=== PATIENT | male | born 1985 | race Caucasian/White ===

== ENCOUNTER 2021-03-26 10:20 | Emergency (ER) | payer SELFPAY ==
[2021-03-26 10:35] VITALS: BP 127/84; PULSE 71; RESP 19; TEMP 37.1; O2SAT 99; BMI 28.7
--- NOTE | 2021-03-26 10:57 | XR_ITS ---
WS: [id number] Exam: XR cervical spine 3V* [id number] Date/Time of Exam: 03/26/2021 10:57 AM Reason For Exam: fall No acute fracture or dislocation. There is straightening of the C-spine. Paraspinal soft tissues appe ar normal. The odontoid is intact. Disc spaces are preserved. Posterior elements are intact. XR/XR cervical spine 3V* [id number] IMPRESSION: 1. Straightening of the C-spine. No fracture or malalignment.
--- NOTE | 2021-03-26 11:00 | W.ED.FALL ---
HPI - Fall General: Chief Complaint: Fall Stated Complaint: FELL 3' FROM LADDER 1WK AGO:PROGRESSING NECK PAIN Time Seen by Provider: 03/26/21 10:22 History of Present Illness: HPI Narrative: 35-year-old male fell from a 3 foot ladder 1 week ago he hurt his neck. Since that time he has been ambulatory moving his head and neck. Is been increasingly uncomfortable he denies any radicular pain into his arms no previous injury to the neck or arms. No other injury at the time of the fall did not strike his head did not lose consciousness. Today came in because he was having some increasing left shoulder pain. MD complaint: fall Onset (ago): week(s) Fall from: from height (distance) (3 ft) Fall witnessed: no Place fall occurred: home Loss of consciousness: None Prolonged down time: no Symptoms prior to fall: none Context: tripped/slipped Location of injury: neck Associated symptoms-after fall: Denies abdominal pain, chest pain, confusion, difficulty walking, headache(s), hematuria, lightheadedness, neck pain, numbness, short of breath, vertigo or weakness Review of Systems Const: Denies: fever(s), chills, body aches, change in appetite, fatigue or malaise ENMT: Denies: throat pain, ear or mastoid pain, nasal discharge or nasal congestion Card: Denies: chest pain or lightheadedness Resp: Denies: dyspnea, productive cough or non-productive cough GI: Denies: abdominal pain : Denies: hematuria Musc: Denies: neck pain Skin/Breast: Denies: rash or pruritus Neuro: Denies: headache(s), difficulty walking, vertigo or confusion Physical Exam Const: COMMON NORMALS: no acute distress GENERAL APPEARANCE: cooperative and comfortable ORIENTATION/CONSCIOUSNESS: Yes awake, Yes oriented to person, Yes oriented to place and Yes oriented to time HENMT: COMMON NORMALS: normocephalic, atraumatic and hearing grossly normal bilaterally HEAD & SCALP: normocephalic and atraumatic Neck/C-Spine: COMMON NORMALS: no JVD Resp: COMMON NORMALS: normal respiratory effort, No retractions, No use of accessory muscles and clear to auscultation bilaterally AUSCULTATION: clear to auscultation bilaterally Cardio: COMMON NORMALS: no JVD, regular rate, regular rhythm and No murmurs present (Cardio) RATE: regular rate RHYTHM: regular rhythm GI: COMMON NORMALS: Soft to palpation and No hepatosplenomegaly present AUSCULTATION: Yes normoactive bowel sounds PALPATION: Yes Soft to palpation, No Tenderness to palpation present (GI), No Guarding due to palpation present (GI) and Yes No hepatosplenomegaly present Extremity: COMMON NORMALS: normal to inspection, capillary refill normal, no clubbing, cyanosis or edema, no calf tenderness and no pedal edema Neuro: SENSORIUM/ORIENTATION: Yes oriented to person, Yes oriented to place and Yes oriented to time Skin: COMMON NORMALS: no rashes or lesions noted GENERAL SKIN EXAM: no rashes or lesions noted Course Vital Signs: Vital signs: Vital Signs Temperature 98.7 F 03/26/21 10:35 Pulse Rate 74 03/26/21 11:30 Respiratory Rate 17 03/26/21 11:30 Blood Pressure 128/74 03/26/21 11:30 Pulse Oximetry 98 03/26/21 11:30 MDM - Fall MDM Narrative: Medical decision making narrative: Reviewed labs and imaging discussed with patient discharged home with anti-inflammatories rest follow-up as needed Discharge Plan Discharge Patient Disposition: Home Clinical Impression: Neck pain Condition: Stable Prescriptions: New diclofenac sodium 75 mg tablet,delayed release (DR/EC) 75 mg PO Q12H PRN (Reason: pain) Qty: 20 RF: 0 Discharge Orders: Discharge ED (Routine); Ordered 03/26/21 Ordered By: Brandon Guzman Discharge Diet: Usual diet Discharge Activity: Increase activity as tolerated Patient Instructions: Opioid Safety Coding Level of Care Code ED Roof Bolter Operator for Laureng Fwd Exam Comprehensive
[2021-03-26 11:30] VITALS: BP 128/74; PULSE 74; RESP 17; O2SAT 98
--- NOTE | 2021-03-27 12:57 | DCPLANNER ---
cath lab manager had message to speak with patient about getting established with a primary care physician. cath lab manager called phone number [phone], unable to speak with patient at this time, and unable to leave a voicemail for patient.
== END 2021-03-26 11:21 | disposition home or self-care (01) ==
PROVIDERS: Emergency Provider Family Medicine
DX: M54.2 Cervicalgia (principal)
CPT/HCPCS: 72040; 99281

== ENCOUNTER 2021-09-20 14:19 | Emergency (ER) | payer MEDICAID, SELFPAY ==
[2021-09-20 14:38] VITALS: BP 134/87; PULSE 73; RESP 18; TEMP 36.9; O2SAT 99; BMI 30.1
--- NOTE | 2021-09-20 14:43 | W.ED.SKABFB ---
HPI - Skin/Abscess/Foreign Bdy General: Chief complaint: Skin/Abscess/Foreign Body Stated complaint: rash Time Seen by Provider: 09/20/21 14:43 Source: patient Mode of arrival: ambulatory Limitations: no limitations History of Present Illness: Patient is a 35-year-old male who presents to ED today with a complaint of skin lesions. Patient tells me last week he was tearing down an old back porch/deck due to the wood being in poor shape and states following this he noticed a few bumps to his lower legs that were itchy. Patient states he did not think much of it at the time. He states yesterday he was then cutting the old wood and noticed today several more lesions to his lower legs and arms. He states lesions are only on areas that were exposed at the time. He states he did not notice any obvious insects on the old would. There was no growth/wilder/plants that he can think of that he would have been exposed to. He does state he was doing some dirt work underneath the porch. He states the lesions itch and some burn. He has no other complaints. No systemic symptoms. MD complaint: rash and lesion Onset (ago): hour(s) Tetanus up to date: yes Location: LUE, RUE, LLE and RLE Severity: mild Quality: burning and pruritic Relieving factors: none Exacerbating factors: none Associated symptoms: Reports no associated symptoms; Deny chills or fever(s) Review of Systems Const: Denies: fever(s), chills, body aches, fatigue or malaise Eyes: Denies: change in vision ENMT: Denies: throat pain, odynophagia, nasal discharge or nasal congestion Card: Denies: chest pain Resp: Denies: dyspnea GI: Denies: abdominal pain Musc: Denies: neck pain, back pain, extremity pain or joint pain Skin/Breast: Reports: new lesions Neuro: Denies: headache(s), numbness in extremities, weakness in extremities, sensory changes or difficulty walking Physical Exam Const: COMMON NORMALS: no acute distress, average body habitus, patient oriented x3, no limitations, healthy appearing, alert and well nourished HENMT: COMMON NORMALS: normocephalic and atraumatic HEAD & SCALP: normocephalic and atraumatic FACE & SINUS: normal facial exam Neck/C-Spine: COMMON NORMALS: no lymphadenopathy Resp: COMMON NORMALS: normal respiratory effort Extremity: GENERAL: Yes normal exam except as noted Neuro: COMMON NORMALS: patient oriented x3, moves all extremities, no focal motor deficits, no sensory deficits noted and gait normal SENSORIUM/ORIENTATION: Yes alert Skin: NARRATIVE SKIN EXAM: pt has multiple (maybe a total of 8-9 to bilateral LEs, 5-6 to bilateral UEs, and one to anterior neck) small papular/wheeled lesions; some have a small amount of surrounding erythema and there are a few with vesicle formation; no linear streaking/lesions not consistent with plant dermatitis; lesions appear to be insect bites Course Vital Signs: Vital signs: Vital Signs Temperature 98.4 F 09/20/21 14:38 Pulse Rate 73 09/20/21 15:14 Respiratory Rate 16 09/20/21 15:14 Blood Pressure 134/87 09/20/21 15:14 Pulse Oximetry 99 09/20/21 15:14 MDM - Skin/Abscess/Foreign Bdy Medicial Decision Making Patient here with multiple lesions after exposure to old wood that he was tearing/cutting. Lesions clinically appear as insect bites. I would recommend at this time he keep wounds clean and avoid picking. He may apply topical hydrocortisone cream or benadryl cream to help with the itching and burning. He may also try oatmeal baths, calamine lotion, OTC insect bite relief, etc to help. Return to ED precautions given. Otherwise he can follow-up with PCP in 1 to 2 weeks if lesions do not seem to be improving. Discharge Plan Discharge Patient Disposition: Home Clinical Impression: Insect bites Condition: Stable Prescriptions: No Action diclofenac sodium 75 mg tablet,delayed release (DR/EC) 75 mg PO Q12H PRN (Reason: pain) Qty: 20 0RF Discharge Orders: Discharge ED (Routine); Ordered 09/20/21 Ordered By: Rosa Correa Activity Restrictions/Additional Instructions: As we discussed you may try topical therapies such as hydrocortisone cream, topical benadryl, calamine lotion, etc to help with the itching/burning. Avoid picking the lesions to prevent infection. You may keep them clean daily with warm soapy water. Coding Level of Care Code ED Instructor Psychiatric Aide for Hayde Corrales
[2021-09-20 15:14] VITALS: BP 134/87; PULSE 73; RESP 16; O2SAT 99
== END 2021-09-20 15:15 | disposition home or self-care (01) ==
PROVIDERS: Emergency Provider Physician Assistant
DX: S40.862A Insect bite (nonvenomous) of left upper arm, initial encounter (principal); S40.861A Insect bite (nonvenomous) of right upper arm, initial encounter; S80.862A Insect bite (nonvenomous), left lower leg, initial encounter; S80.861A Insect bite (nonvenomous), right lower leg, initial encounter; W57.XXXA Bitten or stung by nonvenomous insect and other nonvenomous arthropods, initial encounter
CPT/HCPCS: 99282

== ENCOUNTER 2021-09-24 21:58 | Emergency (ER) | payer MEDICAID, SELFPAY ==
[2021-09-24 22:01] VITALS: BP 153/95; PULSE 77; RESP 16; TEMP 36.7; O2SAT 98; BMI 30.1
--- NOTE | 2021-09-24 22:22 | ED_ITS ---
HPI - Wound/Laceration General: Chief Complaint: Wound/Laceration Stated Complaint: Spread of bites Time Seen by Provider: 09/24/21 22:05 History of Present Illness: Patient presents here with the areas on his legs and arms that have continued to bother him. Patient been using triple antibiotic and cortisone cream and now having some redness to his left mesa area. Patient originally exposed to old wood from turned down a porch. These areas have her only in the areas where he came in contact with blood which would be the lower arms and his lower legs. Does not have a rash or bites are concerning areas anywhere else on his body. Associated symptoms: Denies chills, fever(s), nausea or vomiting Review of Systems Const: Denies: fever(s), chills or body aches Eyes: Denies: eye discomfort ENMT: Denies: throat pain Card: Denies: chest pain Resp: Denies: dyspnea GI: Denies: abdominal pain, nausea or vomiting Skin/Breast: Reports: erythema and sores; Denies: rash or pruritus Neuro: Denies: headache(s) Psych: Denies: depression or suicidal ideation Physical Exam Const: COMMON NORMALS: no acute distress Lymph: LYMPHATIC: no lymphadenopathy noted Skin: OTHER: Patient has scattered bullae on his right left forearm. There is no redness or erythema noted with these. Very small 3 to 4 mm. Some have actually opened up and are in various stages of healing. Patient has a few on his right leg and then he has on his left leg or couple larger bullae and he has been putting triple antibiotic him now he has nonblanching redness around those bullae. There is no active drainage gone there is no signs of cellulitis. Course Vital Signs: Vital signs: Vital Signs Temperature 98.1 F 09/24/21 22:01 Pulse Rate 77 09/24/21 22:01 Respiratory Rate 16 09/24/21 22:01 Blood Pressure 153/95 09/24/21 22:01 Pulse Oximetry 98 09/24/21 22:01 MDM - Wound/Laceration Medical Decision Making Most likely contact dermatitis to old wood or possibly organism in the wood. I do believe patient might be having allergic reaction to the triple antibiotic asked him to stop that and then try triamcinolone on areas. Also has some follow-up primary care and see about referral dermatology if no significant improvement. Patient no longer has any itching. Patient has no evidence of cellulitis. Discharge Plan Discharge Patient Disposition: Home Clinical Impression: Contact dermatitis, Contact allergic reaction Condition: Stable Prescriptions: New triamcinolone acetonide 0.1 % ointment 1 applic topical BID Qty: 80 0RF No Action diclofenac sodium 75 mg tablet,delayed release (DR/EC) 75 mg PO Q12H PRN (Reason: pain) Qty: 20 0RF Discharge Orders: Discharge ED (Routine); Ordered 09/24/21 Ordered By: Javy Jaeger Discharge Diet: Usual diet Discharge Activity: Resume usual activity Patient Instructions: Contact Dermatitis (ED) Activity Restrictions/Additional Instructions: Follow-up with medical provider as directed. Take medications as prescribed. Return to the ER or your medical provider if condition worsens. Please read and understand discharge instructions. If any questions ask please. Stop using triple antibiotic and hydrocortisone ointment. Establish with a local primary care here to see about referral to dermatology if you do not notice any improvement. Coding Level of Care Code ED Corporate Health Consultant for Chg Fwd Exam Expanded Problem Focused
== END 2021-09-24 22:26 | disposition home or self-care (01) ==
PROVIDERS: Emergency Provider Nurse Practitioner Family
DX: L23.9 Allergic contact dermatitis, unspecified cause (principal)
CPT/HCPCS: 99281

== ENCOUNTER 2022-06-05 13:25 | Emergency (ER) | payer BC, MEDICAID, SELFPAY ==
[2022-06-05 13:48] VITALS: BP 142/85; PULSE 74; RESP 14; TEMP 36.5; O2SAT 98; BMI 27.2
--- NOTE | 2022-06-05 14:09 | W.ED.NECK ---
HPI - Neck Pain/Injury General: Chief Complaint: Neck Pain/Injury Stated Complaint: neck pain Time Seen by Provider: 06/05/22 14:06 Source: patient Mode of arrival: ambulatory Limitations: no limitations History of Present Illness: Patient is a nice 36-year-old male who presents to ED today with a complaint of left lateral neck pain over the past month or so. He states over the past 2 weeks he has began noticing a burning-like sensation down his left arm to approximately his elbow. Patient states pain seems to be worse at rest and seems to improve with movement. He does not complain of any numbness, tingling, loss of sensation, or weakness to the extremity. He has not noticed any muscle atrophy. Patient does not have a headache. No fevers. MD complaint: neck pain Onset (ago): month(s) (1 month ago) Radiation: left lateral Severity: mild Duration: constant Relieving factors: movement Exacerbating factors: immobilization Associated symptoms: Denies headache(s) Treatments prior to arrival: none Review of Systems Const: Denies: fever(s), chills, body aches, fatigue or malaise Card: Denies: chest pain Resp: Denies: dyspnea Musc: Reports: neck pain; Denies: back pain, extremity pain, extremity swelling, joint pain, joint swelling, joint redness, joint warmth, limited range of motion, muscle weakness or decrease in muscle mass Skin/Breast: Denies: rash Neuro: Denies: headache(s) or weakness in extremities Physical Exam Const: COMMON NORMALS: no acute distress, average body habitus, patient oriented x3, no limitations, healthy appearing, alert and well nourished GENERAL APPEARANCE: cooperative ORIENTATION/CONSCIOUSNESS: Yes awake, Yes oriented to person, Yes oriented to place and Yes oriented to time HENMT: COMMON NORMALS: normocephalic and atraumatic HEAD & SCALP: normal to inspection, normocephalic and atraumatic Neck/C-Spine: COMMON NORMALS: full ROM and no meningeal signs GENERAL: Yes normal visual inspection CERVICAL SPINE: Yes cervical ROM normal, No Cervical spine tenderness and No step off deformity NECK IMAGES: 1. TTP Extremity: COMMON NORMALS: normal to inspection, full ROM and capillary refill normal GENERAL: Yes normal exam except as noted Neuro: COMMON NORMALS: patient oriented x3, moves all extremities, no focal motor deficits and no sensory deficits noted SENSORIUM/ORIENTATION: Yes alert, Yes oriented to person, Yes oriented to place and Yes oriented to time MENINGEAL SIGNS: Yes no meningeal signs MOTOR EXAM: 5/5 motor strength present throughout and Normal motor muscle tone present throughout Course Vital Signs: Vital signs: Vital Signs Temperature 97.7 F 06/05/22 13:48 Pulse Rate 74 06/05/22 13:48 Respiratory Rate 14 06/05/22 13:48 Blood Pressure 142/85 06/05/22 13:48 Pulse Oximetry 98 06/05/22 13:48 Oxygen Delivery Me thod 06/05/22 13:48 MDM - Neck Pain/Injury Medical Decision Making Patient with no red flag findings on history or physical examination. I do not feel like advanced imaging is necessary at this time from the ED. I will place patient on NSAIDs/steroids and have case management set him up with a PCP for further evaluation if symptoms do not improve over the next 1 to 2 weeks. Return to ED precautions given. Discharge Plan Discharge Patient Disposition: Home Clinical Impression: Cervical radiculopathy Condition: Stable Prescriptions: New Medrol (Sergo) 4 mg tablets,dose pack See Rx Instructions .ROUTE .COMPLEX Qty: 21 0RF Rx Instructions: orally per package directions Continued diclofenac sodium 75 mg tablet,delayed release (DR/EC) 75 mg PO Q12H PRN (Reason: pain) Qty: 20 0RF No Action triamcinolone acetonide 0.1 % ointment 1 applic topical BID Qty: 80 0RF Discharge Orders: Discharge ED (Routine); Ordered 06/05/22 Ordered By: Rosa Correa Coding Level of Care Code ED Oyster Grader for Hayde Corrales
--- NOTE | 2022-06-07 13:04 | DCPLANNER ---
dialysis clinical manager had message to speak with patient about getting established with a primary care physician. dialysis clinical manager unable to speak with patient at this time.
== END 2022-06-05 15:10 | disposition home or self-care (01) ==
PROVIDERS: Emergency Provider Physician Assistant
DX: M54.12 Radiculopathy, cervical region (principal)
CPT/HCPCS: 99283

== ENCOUNTER 2023-04-04 19:48 | Emergency (ER) | payer BC, MEDICAID, SELFPAY ==
--- NOTE | 2023-04-04 19:49 | XRR_ITS ---
PROCEDURE INFORMATION: Exam: XR Left Wrist Exam date and time: 04/04/2023 7:56 PM Age: 37 years old Clinical indication: Injury or trauma; Other: Punched a wall; Blunt trauma (contusions or hematomas); Wrist; Left TECHNIQUE: Imaging protocol: Radiologic exam of the left wrist. Views: 3 or more views. COMPARISON: No relevant prior studies available. FINDINGS: Bones/joints: Sclerotic nonaggressive probable benign bone island in the scaphoid. Soft tissues: Normal. XR/XR wrist LT min 3V* [id number] IMPRESSION: 1. Negative for fracture or dislocation. 2. Sclerotic nonaggressive probable benign bone island in the scaphoid.
[2023-04-04 19:52] VITALS: BP 146/88; PULSE 96; RESP 17; TEMP 36.7; O2SAT 99; BMI 21.6
--- NOTE | 2023-04-04 20:12 | XRR_ITS ---
PROCEDURE INFORMATION: Exam: XR Left Hand Exam date and time: 04/04/2023 8:17 PM Age: 37 years old Clinical indication: Injury or trauma; Other: Punched a wall; Blunt trauma (contusions or hematomas); Hand; Left TECHNIQUE: Imaging protocol: Radiologic exam of the left hand. Views: 3 or more views. COMPARISON: CR XR wrist LT min 3V* [id number] 04/04/2023 7:56 PM FINDINGS: Bones/joints: Fifth metacarpal distal metadiaphyseal somewhat impacted angulated fracture with soft tissue swelling. Soft tissues: See Bones/joints finding. XR/XR hand LT min 3V* [id number] IMPRESSION: Fifth metacarpal distal metadiaphyseal somewhat impacted angulated fracture with soft tissue swelling.
--- NOTE | 2023-04-04 20:28 | W.ED.EXTPRO ---
HPI - Extremity Problem General: Chief complaint: Extremity Injury, Upper Stated complaint: left wrist injury Time Seen by Provider: 04/04/23 19:52 Source: patient Mode of arrival: ambulatory Limitations: no limitations History of Present Illness: 37-year-old male states that he is lifting weights he tripped and he became upset and he punched the bar he states he has had right hand pain since then. Its over the ulnar portion of his hand he rates it a 7 out of 10. Associated symptoms: Deny chest pain, fever(s) or rash Review of Systems Const: Denies: fever(s) or chills ENMT: Denies: throat pain or dental pain Card: Denies: chest pain Resp: Denies: dyspnea GI: Denies: abdominal pain, nausea, vomiting or diarrhea Musc: Reports: extremity pain; Denies: neck pain or back pain Skin/Breast: Denies: rash Neuro: Denies: headache(s) Physical Exam Const: COMMON NORMALS: no acute distress and patient oriented x3 HENMT: COMMON NORMALS: normocephalic and atraumatic HEAD & SCALP: normocephalic and atraumatic Eye: COMMON NORMALS: conjunctivae normal CONJUNCTIVA: Yes conjunctivae normal Neck/C-Spine: COMMON NORMALS: supple Chest: COMMONS NORMALS: normal inspection of the chest Resp: COMMON NORMALS: normal respiratory effort Extremity: OTHER: Tenderness and swelling over ulnar portion of Neuro: COMMON NORMALS: patient oriented x3 Psych: COMMON NORMALS: mental status grossly normal Skin: COMMON NORMALS: no rashes or lesions noted GENERAL SKIN EXAM: no rashes or lesions noted Course Vital Signs: Vital signs: Vital Signs Temperature 98.1 F 04/04/23 19:52 Pulse Rate 96 04/04/23 19:52 Respiratory Rate 17 04/04/23 19:52 Blood Pressure 146/88 04/04/23 19:52 Pulse Oximetry 99 04/04/23 19:52 Oxygen Delivery Me thod Room Air 04/04/23 19:52 MDM - Extremity (Nontraumatic) Medical Decision Making Patient presents here with a right hand boxer fracture from punching a weight bar did place him in a splint we will get him follow-up with orthopedics he is return if worsening Medical Records I reviewed the patient's medical records. XR interpretation done by ED provider, pending radiology final review ED provider radiology interpretation(s): xr hand: boxer fx Discharge Plan Discharge Patient Disposition: Home Clinical Impression: Fracture of hand Qualifiers: Encounter type: initial encounter Fracture type: closed Laterality: left Qualified Code(s): S62.92XA - Unspecified fracture of left wrist and hand, initial encounter for closed fracture Condition: Stable Prescriptions: No Action triamcinolone acetonide 0.1 % ointment 1 applic topical BID Qty: 80 0RF Medrol (Sergo) 4 mg tablets,dose pack See Rx Instructions .ROUTE .COMPLEX Qty: 21 0RF Rx Instructions: orally per package directions diclofenac sodium 75 mg tablet,delayed release (DR/EC) 75 mg PO Q12H PRN (Reason: pain) Qty: 20 0RF Discharge Orders: Discharge ED (Routine); Ordered 04/04/23 Ordered By: Servando Workman Referrals: Jani Sr DO [Physician] - 1-3 days Discharge Diet: Advance as tolerated Discharge Activity: Resume usual activity Patient Instructions: Boxer Fracture (ED) Coding Level of Care Code ED Benzene Still Utility Operator for Hayde Corrales
--- NOTE | 2023-04-05 08:16 | PC.SOCIAL ---
Ortho Referral Referral to clinic at this time. Clinic will contact patient with appt date/time.
== END 2023-04-04 21:40 | disposition home or self-care (01) ==
PROVIDERS: Emergency Provider Emergency Medicine
DX: S62.92XA Unspecified fracture of left hand, initial encounter for closed fracture (principal); W22.09XA Striking against other stationary object, initial encounter
CPT/HCPCS: 29125; 73110; 73130; 99283

== ENCOUNTER → 2023-04-07 13:21 | Outpatient (BNVA) | payer BC, MEDICAID, SELFPAY | PROVIDERS: Referring Provider Emergency Medicine; Visit Provider Physician Assistant | DX: S62.339A Displaced fracture of neck of unspecified metacarpal bone, initial encounter for closed fracture (principal); W22.09XA Striking against other stationary object, initial encounter | CPT/HCPCS: 73130 ==

== ENCOUNTER 2023-04-07 14:46 | Outpatient (CLI) | payer BC, MEDICAID, SELFPAY | END 2023-04-07 14:47 | disposition home or self-care (01) | LOC: SPT 14:47 | PROVIDERS: Visit Provider Physician Assistant | DX: Z46.89 Encounter for fitting and adjustment of other specified devices (principal); S62.90XD Unspecified fracture of unspecified hand, subsequent encounter for fracture with routine healing; X58.XXXD Exposure to other specified factors, subsequent encounter | CPT/HCPCS: 97760; L3984 ==

== ENCOUNTER → 2023-04-20 09:42 | Outpatient (BNVA) | payer BC, MEDICAID, SELFPAY | PROVIDERS: Visit Provider Family Medicine | DX: L50.8 Other urticaria (principal) | CPT/HCPCS: 80053; 84439; 84443; 85025 ==

== ENCOUNTER → 2023-04-21 13:02 | Outpatient (BNVA) | payer BC, MEDICAID, SELFPAY | PROVIDERS: PCP Family Medicine; Visit Provider Physician Assistant | DX: S62.339D Displaced fracture of neck of unspecified metacarpal bone, subsequent encounter for fracture with routine healing; X58.XXXD Exposure to other specified factors, subsequent encounter | CPT/HCPCS: 73130 ==

== ENCOUNTER 2023-05-12 18:40 | Emergency (ER) | payer BC, MEDICAID, SELFPAY ==
[2023-05-12 19:06] VITALS: BP 151/97; PULSE 60; RESP 18; TEMP 37.2; O2SAT 100; BMI 22.4
--- NOTE | 2023-05-12 19:19 | W.ED.SKABFB ---
HPI - Skin/Abscess/Foreign Bdy General: Chief complaint: Skin/Abscess/Foreign Body Stated complaint: Rash, Arms, Back Time Seen by Provider: 05/12/23 19:12 Source: patient Mode of arrival: ambulatory Limitations: no limitations History of Present Illness: 37-year-old male states he has had a rash to his back into his arms roughly for a month. He states he is on steroids had some slight improvement states it is pruritic in nature denies any pain denies any fevers Associated symptoms: Deny chills, fever(s), nausea or vomiting Review of Systems Const: Denies: fever(s) or chills ENMT: Denies: throat pain or dental pain Card: Denies: chest pain Resp: Denies: dyspnea GI: Denies: abdominal pain, nausea, vomiting or diarrhea Musc: Denies: neck pain or back pain Skin/Breast: Reports: rash Neuro: Denies: headache(s) PFSH ED PFSH: Family History Mother Cancer bone, pancreatic-stomach Grandmother Cancer Paternal-unknown Other CAD (coronary artery disease) Denies family history of Diabetes Autoimmune disease Clotting disorder Dementia Hyperlipidemia Psychiatric illness Chronic kidney disease (CKD) Bleeding disorder Lung cancer Hypertension Thyroid disease Stroke Social History Smoking and tobacco/nicotine status: current every day tobacco/nicotine user cigarettes [ Other cigarette details: few cigarrettes per week] and e-cigarettes Alcohol intake: never Substance/Drug Use: current Substance/Drug use frequency: daily Lives independently: Yes Marital status: Number of children: 0 Current occupational status: employed Current occupation: [employer] needs: No Agree to transfusion: Yes Physical Exam Const: COMMON NORMALS: no acute distress, patient oriented x3 and healthy appearing HENMT: COMMON NORMALS: normocephalic and atraumatic HEAD & SCALP: normocephalic and atraumatic Neck/C-Spine: COMMON NORMALS: full ROM and supple Chest: COMMONS NORMALS: normal inspection of the chest and normal palpation of entire chest wall Resp: COMMON NORMALS: normal respiratory effort GI: INSPECTION: Yes normal to inspection Extremity: COMMON NORMALS: normal to inspection and full ROM Neuro: COMMON NORMALS: patient oriented x3, moves all extremities and no focal motor deficits Psych: COMMON NORMALS: mental status grossly normal, Normal thought process present and cooperative THOUGHT PROCESS: Normal thought process present Skin: COMMON NORMALS: no wounds NARRATIVE SKIN EXAM: Maculopapular rash to back and arms Course Vital Signs: Vital signs: Vital Signs Temperature 98.9 F 05/12/23 19:06 Pulse Rate 60 05/12/23 19:06 Respiratory Rate 18 05/12/23 19:06 Blood Pressure 151/97 05/12/23 19:06 Pulse Oximetry 100 05/12/23 19:06 MDM - Skin/Abscess/Foreign Bdy Medicial Decision Making Patient presents here with a contact dermatitis patient given Decadron and Kenalog here he is to follow-up with his PCP follow-up with a dermatitis as well if no improvement he is stable for discharge No radiology studies performed this visit Discharge Plan Discharge Patient Disposition: Home Clinical Impression: Contact dermatitis Condition: Stable Prescriptions: No Action (DME) ulnar gutter fast form See Rx Instructions .Route .MEDSUPPLY Qty: 1 0RF Rx Instructions: As directed triamcinolone acetonide 0.1 % cream 1 applic topical BID PRN (Reason: itching) Qty: 15 0RF prednisone 20 mg tablet 60 mg PO DAILY 5 Days Qty: 15 0RF loratadine 10 mg tablet 10 mg PO DAILY Qty: 30 0RF hydroxyzine HCl 25 mg tablet 25 mg PO BID PRN (Reason: itching) Qty: 20 0RF famotidine 20 mg tablet 20 mg PO DAILY Qty: 14 0RF Discharge Orders: Discharge ED (Routine); Ordered 05/12/23 Ordered By: Servando Workman Referrals: Balaji Flores MD [Primary Care Provider] - 1-3 days Discharge Diet: Advance as tolerated Discharge Activity: Resume usual activity Patient Instructions: Contact Dermatitis (ED) Coding Level of Care Code ED [employer]
[2023-05-12] MEDS: dexamethasone 10 mg/mL INJ IM (19:27)
[2023-05-12] MEDS: triamcinolone 40 mg/mL SDV 80 MG IM (19:29)
== END 2023-05-12 19:42 | disposition home or self-care (01) ==
PROVIDERS: Emergency Provider Emergency Medicine; PCP Family Medicine
DX: L25.9 Unspecified contact dermatitis, unspecified cause (principal); F17.210 Nicotine dependence, cigarettes, uncomplicated
CPT/HCPCS: 96372; 99284; J1100; J3301

== ENCOUNTER 2024-11-09 08:46 | Outpatient (CLI) | payer SELFPAY ==
--- NOTE | 2024-11-09 08:57 | XR_ITS ---
WS: [id number] Exam: XR cervical spine 3V* [id number] Date/Time of Exam: 11/09/2024 9:44 AM Reason For Exam: neuropathy and pain Comparison 03/26/2021. No fracture or malalignment. Slight narrowing of the C5-6 disc and mild spondylosis of C5 and 6. Remaining discs are preserved. Normal posterior elements. Normal paraspinal soft tissues. The dens is intact. XR/XR cervical spine 3V* [id number] IMPRESSION: 1. Straightening and mild degenerative change at the C5-6 level. No other signi ficant finding.
[2024-11-09 09:29] LABS: Basophils # 0.1 10^3/uL (0.0-0.1); Basophils % 0.8 %; Eosinophils # 0.2 10^3/uL (0.0-0.8); Eosinophils % 3.2 %; Hematocrit 45.8 % (37-53); Lymphocytes # 2.5 10^3/uL (0.8-4.8); Lymphocytes % 37.1 %; Mean Corpuscular HGB Conc 34.3 g/dL (30-55); Mean Corpuscular Hemoglobin 31.4 pg (27-33); Mean Corpuscular Volume 91.6 fl (82-101); Mean Platelet Volume 9.7 fL (7.4-10.4); Monocytes # 0.6 10^3/uL (0.2-0.9); Monocytes % 9.5 %; Neutrophils # 3.29 10^3/uL (1.8-7.7); Neutrophils % 49.2 %; Nucleated Red Blood Cells % 0 %; Platelet Count 224 10^3/cmm (157-399); Red Cell Distribution Width 12.1 % (12.1-15.1); White Blood Count 6.66 10^3/uL (3.29-11.43)
[2024-11-09 10:17] LABS: Erythrocyte Sedimentation Rate < 1 mm/hr (0-10)
[2024-11-09 10:18] LABS: 25 Hydroxy Vitamin D 14 ng/mL (30-100); Alanine Aminotransferase 15 U/L (0-41); Albumin Level 4.8 g/dL (3.5-5.2); Alkaline Phosphatase 59 U/L (40-130); Anion Gap 18.9 (5-19); Aspartate Amino Transferase 19 U/L (0-40); Blood Urea Nitrogen 14 mg/dL (6-20); Calcium 9.2 mg/dL (8.5-10.5); Carbon Dioxide 26 mmol/L (22-29); Chloride 101 mmol/L (98-107); Chol HDL Ratio 4.38 mg/dL (1.0-5.00); Cholesterol 206 mg/dL (0-200); Globulin 2.4 g/dL (1.3-4.6); Glomerular Filtration Rate 126.2 mL/min (90-130); Glucose 87 mg/dL (65-115); HDL Cholesterol 47 mg/dL (60-100); LDL Cholesterol Calculated 145 mg/dL (50-129); LDL HDL Ratio 3.09 RATIO (0.00-3.22); Osmolality Calculated 294 mOsm/kg (285-295); Potassium 3.9 mmol/L (3.5-5.1); Sodium 142 mmol/L (136-145); Thyroid Stimulating Hormone 1.29 uIU/mL (0.27-4.20); Total Bilirubin 0.6 mg/dL (0.15-1.2); Total Protein 7.2 g/dL (6.6-8.7); Triglycerides 68 mg/dL (0-150); Vitamin B12 996 pg/mL (232-1245)
[2024-11-09 11:00] LABS: Free T4 Free Thyroxine 1.53 ng/dL (0.82-1.77)
== END 2024-11-09 08:47 | disposition home or self-care (01) ==
PROVIDERS: PCP Family Medicine; Visit Provider Family Medicine
DX: G56.20 Lesion of ulnar nerve, unspecified upper limb (principal); Z13.6 Encounter for screening for cardiovascular disorders; M47.892 Other spondylosis, cervical region
CPT/HCPCS: 36415; 72040; 80053; 80061; 82306; 82607; 84439; 84443; 85025; 85651; 86140